=== PATIENT | male | born 1995 | race Native Hawaiian/Other Pacific Islander ===

== ENCOUNTER 2021-04-01 15:19 | Emergency (ER) | payer OTHER, SELFPAY ==
[2021-04-01 15:39] VITALS: BP 143/74; PULSE 84; RESP 16; TEMP 37; O2SAT 97; BMI 28.5
[2021-04-01 15:57] LABS: COVID19 -Nasal RAPID POSITIVE (Negative)
--- NOTE | 2021-04-01 16:56 | ED.RECABL ---
HPI - Recheck/Abnormal Lab/Rx General Chief Complaint: Recheck/Abnormal Lab/Rx Stated Complaint: cough, nasal congestion, exposure to covid Time Seen by Provider: 04/01/21 16:44 Source: patient Mode of arrival: Ambulatory History of Present Illness HPI narrative: 25-year-old male presents to the emergency department after known COVID exposure requesting COVID testing. Patient is COVID vaccinated x1, [place], he started with symptoms on March 24, he had cough and congestion, was seen at urgent care on March 27 and tested negative for COVID. He still has the same symptoms, has not had a fever has not had any nausea vomiting or diarrhea. Patient is in the [place] and is required to have a COVID test before returning to work. Related Data Allergies Allergy/AdvReac Type Severity Reaction Status Date / Time No Known Drug Allergies Allergy Verified 04/01/21 15:43 Review of Systems Review of Systems Narrative: General: denies fever, chills Head/Neck: denies headache, neck pain, endorses congestion Eyes: denies visual changes, eye pain Cardio: denies chest pain, palpitations Respiratory: denies shortness of breath, endorses a mild cough cough GI: denies abdominal pain, nausea, vomiting, or diarrhea : denies dysuria, hematuria MSK: denies joint pain, muscle weakness Skin: denies rash, itching Neuro: denies numbness, tingling Patient History Social History Smoking Status: Current every day smoker Smoking Status: Current every day smoker alcohol intake frequency: 0-2 drinks per day Substance Use Type: does not use Exam Narrative Exam Narrative: Independently reviewed vitals signs and nursing notes. General: Awake, alert, nontoxic, no cardiorespiratory distress Head/Neck: Atraumatic, neck full range of motion Eyes: EOMI, conjunctiva normal Nose: nares patent, no rhinorrhea Mouth/Throat: moist mucus membranes, posterior pharynx normal, no oral lesions Cardio: Regular rate and rhythm, no peripheral edema Respiratory: respirations unlabored without wheezing, stridor, or rales. No retractions. GI: Abdomen soft, nontender MSK: Moves all extremities, neurovascularly intact Skin: Normal capillary refill, no rash Neuro: Normal speech and cognition, normal gait Initial Vital Signs Initial Vital Signs: Vital Signs Temperature 98.6 F 04/01/21 15:39 Pulse Rate 84 04/01/21 15:39 Respiratory Rate 16 04/01/21 15:39 Blood Pressure 143/74 H 04/01/21 15:39 Pulse Oximetry 97 04/01/21 15:39 Course Orders Ordered: ED Orders 04/01/21 15:42 COVID19 -Nasal swab/Pre-Proc Stat Vital Signs Vital signs: Vital Signs - 8 hr 04/01/21 15:39 Temperature 98.6 F Pulse Rate 84 Respiratory Rate 16 Blood Pressure 143/74 H Pulse Oximetry 97 MDM - Recheck/Abnormal Lab/Rx Lab Data Labs: Lab Results 04/01/21 Range/Units 15:42 SARS-CoV-2 (PCR) Positive H (Negative) MDM Narrative Medical decision making narrative: COVID (+) on day [8] of symptoms without hypoxia, respiratory distress, dehydration, or focal exam to suggest secondary bacterial infection. Discussed CDC guidelines for quarantine, mask wearing, physical distancing, and infection prevention measures such as frequent handwashing. Discussed supportive treatments: Tylenol/Motrin as needed for pain/fever. OTC decongestant medications and/or antihistamines for symptomatic relief. Maintain adequate fluid intake. Follow-up with PCP as directed. Return to clinic/ER instructions discussed for new, not improving, or worsening symptoms. All questions answered. Patient is appropriate and amenable to discharge home. Vital signs are stable on repeat examination is unremarkable. Patient has been informed of results. Patient has been given strict return to ER precautions for any new or worsening symptoms. Patient understands to follow up closely with outpatient providers as instructed. Patient understands plan and agrees to discharge home. All questions and concerns answered at this time. Discharge Plan Departure Patient Disposition: Home Clinical Impression: Encounter for screening for COVID-19, COVID-19 Activity Restrictions/Additional Instructions: *You have been diagnosed with Covid-19. Please quarantine for as long as your symptoms are productive. New CDC recommendations as of 03/16 are: - Stay home for 5 days. - If symptoms have resolved or asymptomatic, you can leave your house but need to wear a mask for 5 additional days. Stay home >5 days if fever has not yet resolved. - Follow employer/school recommendations for return policies. The local Dept of Health will contact you with additional information. Stay well hydrated, take Motrin or Tylenol for fever/pain, and can take [id number] medications if needed for cold symptoms. If you begin to feel short of breath or develop chest pain, please seek medical evaluation. *What to do: *Please continue to take your regular medications as directed. [ ] New medication prescriptions sent to your pharmacy: [ ] [ ] New medication written as a paper prescription [ ] No new medications given *Please follow up with your primary care provider in 2-3 days, call for an appointment. Let them know you were seen in the Emergency Department and that we ask that you be seen in follow up. We will electronically transmit a record of today's note if your PCP is in our system *If you do not have a primary care provider please contact the [facility] Resource line at [phone]. They will ask some questions about your medical history and help get you set up with a doctor in the community. *Return to Emergency Department if you should have any new, worsening or concerning symptoms, such as [fever greater than 101F, chills, worsening pain, persistent vomiting or other bothersome symptoms]
== END 2021-04-01 17:11 | disposition home or self-care (01) ==
PROVIDERS: Emergency Medicine; Emergency Provider Nurse Practitioner Critical Care Medicine
DX: U07.1 COVID-19 (principal)
CPT/HCPCS: 87635; 99281; 99282; C9803